=== PATIENT | female | born 1940 | race Caucasian/White ===

== ENCOUNTER 2018-06-03 12:40 | Emergency (ER) | payer OTHER, MEDICARE ==
[2018-06-03] MEDS ORDERED: IBUPROFEN 400 MG TAB ONE (13:45)
--- NOTE | 2018-06-03 14:32 | RAD REPORT ---
EXAM DESCRIPTION: RAD - Lumbar Spine 3 Views - 06/03/2018 2:26 pm CLINICAL HISTORY: PAIN Radiculopathy COMPARISON: No comparisons FINDINGS: Vertebral body heights appear maintained. No compression fracture noted. Disc thinning is present at the lower lumbar levels with small posterior osteophytes. No spondylolysis or spondylolist hesis. Facet arthrosis is present at L4-5 and L5-S1. Aortic atherosclerosis noted. IMPRESSION: Mild lower lumbar spondylosis.
--- NOTE | 2018-06-03 14:38 | RAD REPORT ---
EXAM DESCRIPTION: RAD - Chest Pa And Lat (2 Views) - 06/03/2018 2:26 pm CLINICAL HISTORY: PAIN Chest pain. COMPARISON: Chest Pa And Lat (2 Views) dated 06/23/2016 FINDINGS: The lungs are hyperexpanded but clear. The heart is normal in size. No displaced fractures . IMPRESSION: Mild COPD.
[2018-06-03 14:55] LABS: Urine Blood NEGATIVE (NEG); Urine Glucose NEGATIVE (NEG); Urine Protein NEGATIVE (NEG); Urine Specific Gravity 1.015 (1.005-1.030)
--- NOTE | 2018-06-03 14:57 | ER ---
Nurse's Notes [facility] Name: Joyce Gómez Age: 77 yrs Sex: Female : 1940 Arrival Date: 06/03/2018 Time: 12:41 Bed 7 Private MD: Jethro Mcdonald Diagnosis: Fall due to bumping against object;Low back pain;Contusion of back wall of thorax;Spondylolysis, lumbar region;Chronic obstructive pulmonary disease, unspecified Presentation: 06/03 12:52 Presenting complaint: Patient states: fell from standing position, hitting left side of sg back and upper shoulder on a metal piece kept outside of her door. pt denies LOC or hitting head, reports pain with ambulation. Care prior to arrival: None. Mechanism of Injury: No Mechanism of Injury. Trauma event details: Injury occurred in the [facility]. 12:52 Acuity: HIRO 4 sg 12:52 Method Of Arrival: Wheelchair sg 13:11 Transition of care: patient was not received from another setting of care. Onset of ss symptoms was June 03, 2018. Risk Assessment: Do you want to hurt yourself or someone else? Patient reports no desire to harm self or others. Initial Sepsis Screen: Does the patient meet any 2 criteria? No. Patient's initial sepsis screen is negative. Does the patient have a suspected source of infection? No. Patient's initial sepsis screen is negative. Trauma Activation: Not Applicable Physician: ED Physician; Name: ; Notified At: ; Arrived At: Physician: General Surgeon; Name: ; Notified At: ; Arrived At: Physician: Radiology; Name: ; Notified At: ; Arrived At: Physician: Respiratory; Name: ; Notified At: ; Arrived At: Physician: Lab; Name: ; Notified At: ; Arrived At: Historical: - Allergies: 12:56 No Known Allergies; sg - Home Meds: 12:56 aspirin 81 mg Oral chew 1 tab once daily [Active]; biotin oral oral [Active]; Folic sg Acid Oral [Active]; turmeric root extract oral oral [Active]; Prilosec Oral [Active]; hydrochlorothiazide 12.5 mg Oral cap 1 cap once daily [Active]; irbesartan oral oral [Active]; amlodipine oral [Active]; ropinirole oral oral [Active]; - PMHx: 12:56 Hypertension; Restless Leg Syndrome; sg - PSHx: 12:56 Hysterectomy; Knee surgery; sg - Immunization history: Last tetanus immunization:. - Social history:: Smoking status: Patient/guardian denies using tobacco. - Ebola Screening: : Patient denies exposure to infectious person Patient denies travel to an Ebola-affected area in the 21 days before illness onset. Screenin:13 Abuse screen: Denies threats or abuse. Denies injuries from another. Nutritional ss screening: No deficits noted. Tuberculosis screening: No symptoms or risk factors identified. Never had TB. Fall Risk Fall in past 12 months (25 points). No secondary diagnosis (0 pts). No IV (0 pts). Ambulatory Aid- None/Bed Rest/Nurse Assist (0 pts). Gait- Normal/Bed Rest/Wheelchair (0 pts) Mental Status- Oriented to own ability (0 pts). Assessment: 13:13 General: Appears in no apparent distress. comfortable, Behavior is calm, cooperative, ss Denies fever, feeling ill, fatigue, chills. Pain: Complains of pain in mid back area and left mid back Pain currently is 8 out of 10 on a pain scale. Quality of pain is described as aching, tender, Pain began After injury occurred at approx 1000 this morning Is continuous. Neuro: Level of Consciousness is awake, alert, obeys commands, Oriented to person, place, time, situation, Speech is normal. Cardiovascular: Capillary refill < 3 seconds is brisk. Respiratory: Airway is patent Trachea midline Respiratory effort is even, unlabored, Respiratory pattern is regular, symmetrical, Breath sounds are clear bilaterally. Denies cough, shortness of breath pain with respiration, pain with cough, pain with movement. GI: Abdomen is non-distended, Bowel sounds present X 4 quads. Patient currently denies abdominal pain, diarrhea, nausea, vomiting. : No signs and/or symptoms were reported regarding the genitourinary system. EENT: Nares are clear Oral mucosa is moist. Throat is clear. Derm: Skin is pink, warm \T\ dry. Derm: redness noted to area of pain (L flank area/ mid back). Musculoskeletal: Circulation, motion, and sensation intact. Range of motion: intact in all extremities, Swelling absent. 14:30 Reassessment: Pt ambulated with ease to restroom, gait steady. Daughter walking with ss patient. Offered wheelchair, patient refused. Pt reports that L mid/ low back pain increases with increased activity. 15:02 Reassessment: Patient appears in no apparent distress at this time. Patient and/or ss family updated on plan of care and expected duration. Pain level reassessed. Patient is alert, oriented x 3, equal unlabored respirations, skin warm/dry/pink. Patient states feeling better. Vital Signs: 12:56 BP 144 / 64; Pulse 55; Resp 17; Temp 98.2; Pulse Ox 98% on R/A; Weight 75.75 kg (R); sg Pain 8/10; 15:00 BP 139 / 66; Pulse 50; Resp 16; Pulse Ox 97% on R/A; Pain 2/10; ss Trauma Score (Adult): 12:56 Eye Response: spontaneous(1); Verbal Response: oriented(1); Motor Response: obeys sg commands(2); Systolic BP: > 89 mm Hg(4); Respiratory Rate: 10 to 29 per min(4); Marek Score: 15; Trauma Score: 12 ED Course: 12:41 Patient arrived in ED. sb2 12:41 Jethro Mcdonald MD is Private Physician. sb2 12:53 Triage completed. sg 12:59 Jose Antonio Saunders MD is Attending Physician. tomy 13:03 Sonya Frazier, LEON is Primary Nurse. ss 13:11 Arm band placed on right wrist. ss 13:13 Patient has correct armband on for positive identification. Bed in low position. Call ss light in reach. 14:26 Chest Pa And Lat (2 Views) XRAY In Process Unspecified. EDMS 14:26 Lumbar Spine (3 Views) XRAY In Process Unspecified. EDMS 14:56 Jethro Mcdonald MD is Referral Physician. tomy 15:02 No provider procedures requiring assistance completed. Patient did not have IV access ss during this emergency room visit. Administered Medications: 13:43 Drug: Motrin 400 mg Route: PO; sv 15:02 Follow up: Response: No adverse reaction; Pain is decreased ss Intake: 12:56 PO: 0ml; Total: 0ml. sg Outcome: 14:57 Discharge ordered by MD. tomy 15:38 Discharged to home ambulatory, with family. ss 15:38 Condition: good 15:38 Discharge instructions given to patient, family, Instructed on discharge instructions, follow up and referral plans. medication usage, Demonstrated understanding of instructions, follow-up care, medications, Prescriptions given X 1. 15:40 Patient left the ED. ss Signatures: Dispatcher [employer] EDArabella Novak, RN Guillermo German RN RN sg Anderson, Corey, MD MD cha Smirch, Shelby, RN RN Kimberley Galindo2
--- NOTE | 2018-06-03 14:57 | EDPHYS ---
Physician Documentation [facility] Name: Joyce Gómez Age: 77 yrs Sex: Female : 1940 Arrival Date: 06/03/2018 Time: 12:41 Bed 7 Private MD: Jethro Mcdonald ED Physician Jose Antonio Saunders HPI: 06/03 13:34 This 77 yrs old Female presents to ER via Wheelchair with complaints of Fall tomy Injury - BACK. 13:34 Details of fall: The patient fell from an upright position, while standing, while tomy walking. Onset: The symptoms/episode began/occurred just prior to arrival, this morning. Associated injuries: The patient sustained upper back injury, decreased range of motion, pain, pain with movement. Severity of symptoms: At their worst the symptoms were mild, in the emergency department the symptoms are unchanged. The patient has not experienced similar symptoms in the past. Historical: - Allergies: 12:56 No Known Allergies; sg - Home Meds: 12:56 aspirin 81 mg Oral chew 1 tab once daily [Active]; biotin oral oral [Active]; Folic sg Acid Oral [Active]; turmeric root extract oral oral [Active]; Prilosec Oral [Active]; hydrochlorothiazide 12.5 mg Oral cap 1 cap once daily [Active]; irbesartan oral oral [Active]; amlodipine oral [Active]; ropinirole oral oral [Active]; - PMHx: 12:56 Hypertension; Restless Leg Syndrome; sg - PSHx: 12:56 Hysterectomy; Knee surgery; sg - Immunization history: Last tetanus immunization:. - Social history:: Smoking status: Patient/guardian denies using tobacco. - Ebola Screening: : Patient denies exposure to infectious person Patient denies travel to an Ebola-affected area in the 21 days before illness onset. ROS: 13:35 Constitutional: Negative for fever, chills, and weight loss, Eyes: Negative for injury, tomy pain, redness, and discharge, ENT: Negative for injury, pain, and discharge, Neck: Negative for injury, pain, and swelling, Cardiovascular: Negative for chest pain, palpitations, and edema, Respiratory: Negative for shortness of breath, cough, wheezing, and pleuritic chest pain, Abdomen/GI: Negative for abdominal pain, nausea, vomiting, diarrhea, and constipation, : Negative for injury, bleeding, discharge, and swelling, MS/Extremity: Negative for injury and deformity, Skin: Negative for injury, rash, and discoloration, Neuro: Negative for headache, weakness, numbness, tingling, and seizure, Psych: Negative for depression, anxiety, suicide ideation, homicidal ideation, and hallucinations, Allergy/Immunology: Negative for hives, rash, and allergies, Endocrine: Negative for neck swelling, polydipsia, polyuria, polyphagia, and marked weight changes, Hematologic/Lymphatic: Negative for swollen nodes, abnormal bleeding, and unusual bruising. 13:35 Back: Positive for decreased range of motion, pain at rest, pain with movement, of the left low back and left mid back. Exam: 13:35 Constitutional: This is a well developed, well nourished patient who is awake, alert, tomy and in no acute distress. Head/Face: Normocephalic, atraumatic. Eyes: Pupils equal round and reactive to light, extra-ocular motions intact. Lids and lashes normal. Conjunctiva and sclera are non-icteric and not injected. Cornea within normal limits. Periorbital areas with no swelling, redness, or edema. ENT: Nares patent. No nasal discharge, no septal abnormalities noted. Tympanic membranes are normal and external auditory canals are clear. Oropharynx with no redness, swelling, or masses, exudates, or evidence of obstruction, uvula midline. Mucous membranes moist. Neck: Trachea midline, no thyromegaly or masses palpated, and no cervical lymphadenopathy. Supple, full range of motion without nuchal rigidity, or vertebral point tenderness. No Meningismus. Chest/axilla: Normal chest wall appearance and motion. Nontender with no deformity. No lesions are appreciated. Cardiovascular: Regular rate and rhythm with a normal S1 and S2. No gallops, murmurs, or rubs. Normal PMI, no JVD. No pulse deficits. Respiratory: Lungs have equal breath sounds bilaterally, clear to auscultation and percussion. No rales, rhonchi or wheezes noted. No increased work of breathing, no retractions or nasal flaring. Abdomen/GI: Soft, non-tender, with normal bowel sounds. No distension or tympany. No guarding or rebound. No evidence of tenderness throughout. Skin: Warm, dry with normal turgor. Normal color with no rashes, no lesions, and no evidence of cellulitis. MS/ Extremity: Pulses equal, no cyanosis. Neurovascular intact. Full, normal range of motion. Neuro: Awake and alert, GCS 15, oriented to person, place, time, and situation. Cranial nerves II-XII grossly intact. Motor strength 5/5 in all extremities. Sensory grossly intact. Cerebellar exam normal. Normal gait. Psych: Awake, alert, with orientation to person, place and time. Behavior, mood, and affect are within normal limits. 13:35 Back: pain, that is mild, that is moderate, ROM is painful, with all movement, normal spinal alignment noted, CVA tenderness, that is mild, is noted on the left, vertebral tenderness, is not appreciated. Vital Signs: 12:56 BP 144 / 64; Pulse 55; Resp 17; Temp 98.2; Pulse Ox 98% on R/A; Weight 75.75 kg (R); sg Pain 8/10; 15:00 BP 139 / 66; Pulse 50; Resp 16; Pulse Ox 97% on R/A; Pain 2/10; ss Trauma Score (Adult): 12:56 Eye Response: spontaneous(1); Verbal Response: oriented(1); Motor Response: obeys sg commands(2); Systolic BP: > 89 mm Hg(4); Respiratory Rate: 10 to 29 per min(4); Dexter Score: 15; Trauma Score: 12 MDM: 12:59 Patient medically screened. [facility] 13:36 Data reviewed: vital signs, nurses notes, lab test result(s), urinalysis. [facility] 06/03 14:44 Order name: Urine Dipstick--Ancillary (enter results) 06/03 13:27 Order name: Chest Pa And Lat (2 Views) XRAY; Complete Time: 14:56 [facility] 06/03 13:27 Order name: Lumbar Spine (3 Views) XRAY; Complete Time: 14:56 [facility] 06/03 13:27 Order name: Urine Dipstick-Ancillary (obtain specimen); Complete Time: 14:51 [facility] 06/03 14:58 Order name: INCENTIVE SPIROMETRY [facility] Administered Medications: 13:43 Drug: Motrin 400 mg Route: PO; sv 15:02 Follow up: Response: No adverse reaction; Pain is decreased Disposition: 06/03/18 14:57 Discharged to Home. Impression: Fall due to bumping against object, Low back pain, Contusion of back wall of thorax, Spondylolysis, lumbar region, Chronic obstructive pulmonary disease, unspecified. - Condition is Stable. - Discharge Instructions: Back Pain, Adult, Chronic Obstructive Pulmonary Disease, Musculoskeletal Pain, Back Injury Prevention, [id number], Back Pain, Adult, [id number]. - Prescriptions for Tylenol- Codeine #3 300-30 mg Oral Tablet - take 2 tablets by ORAL route every 6 hours As needed; 24 tablet. - Medication Reconciliation Form, Thank You Letter, Antibiotic Education, Prescription Opioid Use form. - Follow up: Jethro Mcdonald MD; When: 2 - 3 days; Reason: Recheck today's complaints, Continuance of care, Re-evaluation by your physician. - Problem is new. - Symptoms have improved. Signatures: Dispatcher [employer] EDArabella Novak RN RN sv Gay, Steven, RN RN sg Anderson, Corey, MD MD cha Smirch, Shelby, RN RN ss Corrections: (The following items were deleted from the chart) 14:58 14:57 06/03/2018 14:57 Discharged to Home. Impression: Fall due to bumping against tomy object; Low back pain; Contusion of back wall of thorax; Spondylolysis, lumbar region. Condition is Stable. Forms are Medication Reconciliation Form, Thank You Letter, Antibiotic Education, Prescription Opioid Use. Follow up: Jethro Mcdonald; When: 2 - 3 days; Reason: Recheck today's complaints, Continuance of care, Re-evaluation by your physician. Problem is new. Symptoms have improved. [facility] 15:40 14:58 06/03/2018 14:57 Discharged to Home. Impression: Fall due to bumping against ss object; Low back pain; Contusion of back wall of thorax; Spondylolysis, lumbar region; Chronic obstructive pulmonary disease, unspecified. Condition is Stable. Forms are Medication Reconciliation Form, Thank You Letter, Antibiotic Education, Prescription Opioid Use. Follow up: Jethro Mcdonald; When: 2 - 3 days; Reason: Recheck today's complaints, Continuance of care, Re-evaluation by your physician. Problem is new. Symptoms have improved. [facility]
== END 2018-06-03 15:40 | disposition home or self-care (01) ==
LOC: ER 12:40
DX: S20.229A Contusion of unspecified back wall of thorax, initial encounter (principal); W18.00XA Striking against unspecified object with subsequent fall, initial encounter; Y93.9 Activity, unspecified; Y92.9 Unspecified place or not applicable; M47.896 Other spondylosis, lumbar region; J44.9 Chronic obstructive pulmonary disease, unspecified; I10 Essential (primary) hypertension
CPT/HCPCS: 71046; 72100; 81003; 99283

== ENCOUNTER 2019-02-21 05:20 | Emergency (ER) | payer OTHER, MEDICARE ==
[2019-02-21] MEDS ORDERED: TRAMADOL HCL 50 MG TAB ONE (05:57)
--- NOTE | 2019-02-21 06:36 | ER ---
Nurse's Notes [facility] Name: Joyce Gómez Age: 78 yrs Sex: Female : 1940 Arrival Date: 02/21/2019 Time: 05:28 Bed 14 Private MD: Diagnosis: Pain in right hip Presentation: 02/21 05:28 Presenting complaint: EMS states: Called for patient unable to bear weight, pain to lp1 right hip; Hx of sciatica; Denies any trauma, falls; States falling asleep in recliner last night. Transition of care: patient was not received from another setting of care. Onset of symptoms was February 21, 2019. Risk Assessment: Do you want to hurt yourself or someone else? Patient reports no desire to harm self or others. Initial Sepsis Screen: Does the patient meet any 2 criteria? No. Patient's initial sepsis screen is negative. Does the patient have a suspected source of infection? No. Patient's initial sepsis screen is negative. Care prior to arrival: None. 05:28 Method Of Arrival: [facility] lp1 05:28 Acuity: HIRO 4 lp1 Historical: - Allergies: 05:32 No Known Allergies; lp1 - Home Meds: 05:32 irbesartan 300 mg oral tab once daily [Active]; ropinirole 0.25 mg oral tab nightly lp1 [Active]; Prilosec Oral [Active]; hydrochlorothiazide 12.5 mg Oral cap 1 cap once daily [Active]; amlodipine 5 mg oral tab once daily [Active]; - PMHx: 05:32 Hypertension; restless leg syndrome; sciatica; lp1 - PSHx: 05:32 Hysterectomy; Knee surgery; lp1 - Immunization history:: Adult Immunizations up to date. - Social history:: Smoking status: Patient/guardian denies using tobacco. - Ebola Screening: : No symptoms or risks identified at this time. Screenin:34 Abuse screen: Denies threats or abuse. Denies injuries from another. Nutritional lp1 screening: No deficits noted. Tuberculosis screening: No symptoms or risk factors identified. Fall Risk None identified. Assessment: 05:32 General: Appears in no apparent distress. Behavior is calm, cooperative, appropriate lp1 for age. Pain: Complains of pain in right hip Quality of pain is described as aching. Neuro: Level of Consciousness is awake, alert, obeys commands, Oriented to person, place, time, situation, Intact. Cardiovascular: Patient's skin is warm and dry. Respiratory: Respiratory effort is even, unlabored. GI: No signs and/or symptoms were reported involving the gastrointestinal system. : No signs and/or symptoms were reported regarding the genitourinary system. EENT: No signs and/or symptoms were reported regarding the EENT system. Derm: Skin is pink, warm \T\ dry. Musculoskeletal: Range of motion: limited in right hip. 06:40 Reassessment: Assisted patient to for discharge, unable to bear weight to right leg; lp1 Provider notified. 07:04 Reassessment: Assisted patient to bedside commode and [facility]; lp1 family at bedside. 08:10 Reassessment: Patient appears in no apparent distress at this time. Patient and/or em family updated on plan of care and expected duration. Pain level reassessed. Patient is alert, oriented x 3, equal unlabored respirations, skin warm/dry/pink. pending CT results. 09:30 Reassessment: assisted pt to bedside commode, reports pain in right hip, provider em notified, new medication orders received. Vital Signs: 05:30 BP 142 / 65; Pulse 60; Resp 18; Temp 97; Pulse Ox 95% on R/A; Weight 79.38 kg; Height 5 lp1 ft. 10 in. (177.80 cm); Pain 0/10; 07:06 BP 153 / 66; Pulse 58; Resp 16; Pulse Ox 97% on R/A; em 08:30 BP 135 / 64; Pulse 69; Resp 18; Pulse Ox 95% on R/A; em 05:30 Body Mass Index 25.11 (79.38 kg, 177.80 cm) lp1 ED Course: 05:28 Patient arrived in ED. lp1 05:30 Triage completed. lp1 05:30 Arm band placed on left wrist. lp1 05:32 Benjamin Arriola MD is Attending Physician. tw4 05:34 Patient has correct armband on for positive identification. lp1 05:34 No provider procedures requiring assistance completed. Patient did not have IV access lp1 during this emergency room visit. 05:44 Lynda Maravilla, RN is Primary Nurse. lp1 06:28 X-ray completed. Portable x-ray completed in exam room. Patient tolerated procedure kw well. 06:31 Pelvis XRAY In Process Unspecified. EDMS 07:06 Jose Antonio Finn PA is PHCP. cp 07:17 CT Pelvis wo Cont In Process Unspecified. EDMS 09:09 Raul Hoffmann MD is Referral Physician. cp Administered Medications: 05:44 Drug: traMADol 50 mg Route: PO; lp1 06:34 Follow up: Response: Pain is decreased lp1 09:08 Drug: TORadol 30 mg Route: IM; Site: right deltoid; em 09:25 Follow up: Response: No adverse reaction; Pain is unchanged, physician notified em 09:40 Drug: fentaNYL (PF) 25 mcg Route: IM; Site: left deltoid; em 09:56 Follow up: Response: No adverse reaction; Pain is decreased em Outcome: 06:35 Discharge ordered by . tw4 09:09 Discharge ordered by MD. cp 09:53 Discharged to home via wheelchair, with family. em 09:53 Condition: good 09:53 Discharge instructions given to patient, family, Instructed on discharge instructions, follow up and referral plans. medication usage, Demonstrated understanding of instructions, follow-up care, medications, Prescriptions given X 3. 09:56 Patient left the ED. em Signatures: Dispatcher [employer] EDMN Carlos Hoover, COWLMAN COWLMAN em Sarah Charles Laura, LEON RN lp1 Jose Antonio Finn PA PA cp Wadley, Terrence, MD MD tw4
--- NOTE | 2019-02-21 08:14 | RAD REPORT ---
EXAM DESCRIPTION: CT - Pelvis Wo Cont - 02/21/2019 7:15 am CLINICAL HISTORY: PAIN Right hip pain, difficulty with weight-bearing COMPARISON: Pelvis dated 02/21/2019 TECHNIQUE: All CT scans are performed using dose optimization technique as appropriate and may inclu de automated exposure control or mA/KV adjustment according to patient size. FINDINGS: No acute fracture or dislocation is seen. No aggressive bony lesion identified. Both sacra l ala are intact. Sigmoid diverticulosis coli is present without diverticulitis. No pelvic mass, free fluid or hematoma . IMPRESSION: No acute process identified.
--- NOTE | 2019-02-21 08:33 | RAD REPORT ---
EXAM DESCRIPTION: RAD - Pelvis - 02/21/2019 6:30 am CLINICAL HISTORY: TRAUMA COMPARISON: No comparisons FINDINGS: Bilateral hip osteoarthritic changes are present. No acute fracture or dislocation suspect ed.
--- NOTE | 2019-02-21 09:10 | EDPHYS ---
Physician Documentation [facility] Name: Joyce Gómez Age: 78 yrs Sex: Female : 1940 Arrival Date: 02/21/2019 Time: 05:28 Bed 14 Private MD: ED Physician Benjamin Arriola HPI: 02/21 06:52 This 78 yrs old Female presents to ER via EMS with complaints of Hip Pain. tw4 06:52 The patient or guardian reports deformity, pain. that occurred at home. The complaints tw4 affect the right hip. Onset: The symptoms/episode began/occurred today. Modifying factors: The symptoms are alleviated by nothing, the symptoms are aggravated by nothing. The patient has not experienced similar symptoms in the past. Historical: - Allergies: 05:32 No Known Allergies; lp1 - Home Meds: 05:32 irbesartan 300 mg oral tab once daily [Active]; ropinirole 0.25 mg oral tab nightly lp1 [Active]; Prilosec Oral [Active]; hydrochlorothiazide 12.5 mg Oral cap 1 cap once daily [Active]; amlodipine 5 mg oral tab once daily [Active]; - PMHx: 05:32 Hypertension; restless leg syndrome; sciatica; lp1 - PSHx: 05:32 Hysterectomy; Knee surgery; lp1 - Immunization history:: Adult Immunizations up to date. - Social history:: Smoking status: Patient/guardian denies using tobacco. - Ebola Screening: : No symptoms or risks identified at this time. ROS: 06:52 Constitutional: Negative for fever, chills, and weight loss, Eyes: Negative for injury, tw4 pain, redness, and discharge, Cardiovascular: Negative for chest pain, palpitations, and edema, Respiratory: Negative for shortness of breath, cough, wheezing, and pleuritic chest pain, Abdomen/GI: Negative for abdominal pain, nausea, vomiting, diarrhea, and constipation, Skin: Negative for injury, rash, and discoloration, Neuro: Negative for headache, weakness, numbness, tingling, and seizure. 06:52 MS/extremity: Positive for injury or acute deformity, decreased range of motion, pain, tenderness, Negative for abrasion, bite, contusion. Exam: 06:52 Constitutional: This is a well developed, well nourished patient who is awake, alert, tw4 and in no acute distress. Head/Face: Normocephalic, atraumatic. Chest/axilla: Normal chest wall appearance and motion. Nontender with no deformity. No lesions are appreciated. Cardiovascular: Regular rate and rhythm with a normal S1 and S2. No gallops, murmurs, or rubs. Normal PMI, no JVD. No pulse deficits. Respiratory: Lungs have equal breath sounds bilaterally, clear to auscultation and percussion. No rales, rhonchi or wheezes noted. No increased work of breathing, no retractions or nasal flaring. Abdomen/GI: Soft, non-tender, with normal bowel sounds. No distension or tympany. No guarding or rebound. No evidence of tenderness throughout. Skin: Warm, dry with normal turgor. Normal color with no rashes, no lesions, and no evidence of cellulitis. 06:52 Musculoskeletal/extremity: Extremities: noted in the right hip and right gluteal fold: decreased ROM. Vital Signs: 05:30 BP 142 / 65; Pulse 60; Resp 18; Temp 97; Pulse Ox 95% on R/A; Weight 79.38 kg; Height 5 lp1 ft. 10 in. (177.80 cm); Pain 0/10; 07:06 BP 153 / 66; Pulse 58; Resp 16; Pulse Ox 97% on R/A; em 08:30 BP 135 / 64; Pulse 69; Resp 18; Pulse Ox 95% on R/A; em 05:30 Body Mass Index 25.11 (79.38 kg, 177.80 cm) lp1 MDM: 05:32 Patient medically screened. tw4 09:08 Data reviewed: vital signs, nurses notes, radiologic studies, CT scan, plain films. cp 09:08 Test interpretation: by ED physician or midlevel provider: plain radiologic studies. cp Counseling: I had a detailed discussion with the patient and/or guardian regarding: the historical points, exam findings, and any diagnostic results supporting the discharge/admit diagnosis, radiology results, the need for outpatient follow up, a orthopedic surgeon, to return to the emergency department if symptoms worsen or persist or if there are any questions or concerns that arise at home. Response to treatment: the patient's symptoms have mildly improved after treatment. ED course: VSS. Radiology studies negative for fracture. Once pain improved and patient able to ambulate, will discharge to home for continued monitoring. 02/21 05:33 Order name: Pelvis XRAY; Complete Time: 08:39 tw4 02/21 06:52 Order name: CT Pelvis wo Cont; Complete Time: 08:39 tw4 02/21 08:39 Interpretation: Report reviewed. cp Administered Medications: 05:44 Drug: traMADol 50 mg Route: PO; lp1 06:34 Follow up: Response: Pain is decreased lp1 09:08 Drug: TORadol 30 mg Route: IM; Site: right deltoid; em 09:25 Follow up: Response: No adverse reaction; Pain is unchanged, physician notified em 09:40 Drug: fentaNYL (PF) 25 mcg Route: IM; Site: left deltoid; em 09:56 Follow up: Response: No adverse reaction; Pain is decreased em Disposition: 02/21/19 09:09 Discharged to Home. Impression: Pain in right hip. - Condition is Stable. - Discharge Instructions: Hip Pain. - Prescriptions for Mobic 7.5 mg Oral Tablet - take 1 tablet by ORAL route once daily take with food; 20 tablet. Tramadol 50 mg Oral Tablet - take 1 tablet by ORAL route every 8 hours As needed as needed; 20 tablet. - Medication Reconciliation Form, Thank You Letter, Antibiotic Education, Prescription Opioid Use form. - Follow up: Raul Hoffmann MD; When: 2 - 3 days; Reason: Recheck today's complaints. - Problem is new. - Symptoms have improved. Addendum: 02/25/2019 16:34 Co-signature as Attending Physician, Benjamin Arriola MD I agree with the assessment and t w4 plan of care. Signatures: Dispatcher [employer] EDNM Carlos Hoover, FACULTY ADMINISTRATOR FACULTY ADMINISTRATOR Lynda Wood RN RN lp1 Jose Antonio Finn PA PA Benjamin Marks MD MD tw4 Corrections: (The following items were deleted from the chart) 02/21 06:56 06:35 02/21/2019 06:35 Discharged to Home. Impression: Strain of muscle, fascia and tw4 tendon of right hip. Condition is Stable. Forms are Medication Reconciliation Form, Thank You Letter, Antibiotic Education, Prescription Opioid Use. Follow up: Private Physician; When: Upon discharge from the Emergency Department; Reason: If symptoms return, Recheck today's complaints, Continuance of care. Problem is new. Symptoms have improved. tw4 09:56 09:09 02/21/2019 09:09 Discharged to Home. Impression: Pain in right hip. Condition is em Stable. Prescriptions for Tramadol 50 mg Oral Tablet - take 1 tablet by ORAL route every 8 hours as needed; 12 tablet. and Forms are Medication Reconciliation Form, Thank You Letter, Antibiotic Education, Prescription Opioid Use. Follow up: Raul Hoffmann; When: 2 - 3 days; Reason: Recheck today's complaints. Problem is new. Symptoms have improved. cp
[2019-02-21] MEDS ORDERED: KETOROLAC 30 MG/ML INJ ONE (09:19)
[2019-02-21] MEDS ORDERED: FENTANYL CITR 100 MCG/2 ML ONE (09:46)
== END 2019-02-21 09:56 | disposition home or self-care (01) ==
LOC: ER 05:20
DX: M25.551 Pain in right hip (principal); I10 Essential (primary) hypertension
CPT/HCPCS: 72170; 72192; 96372; 99284; J3010

== ENCOUNTER 2019-02-23 15:40 | Inpatient (IN) | payer OTHER, MEDICARE ==
--- OUTSIDE RECORDS SUMMARY | 2019-02-23 15:43 | XMS REPORT ---
:1940 Author Organization [facility] Address [address] [place] [address] Dr. Escobedo [address] [place] [id number] Care Team Providers Name Role Phone Unavailable Unavailable Unavailable Problems This patient has no known problems. Allergies, Adverse Reactions, Alerts This patient has no known allergies or adverse reactions. Medications This patient has no known medications.
--- NOTE | 2019-02-23 17:13 | RAD REPORT ---
EXAM DESCRIPTION: RAD - Lumbar Spine 3 Views - 02/23/2019 4:47 pm CLINICAL HISTORY: Back pain COMPARISON: May 2018 FINDINGS: A three-view lumbar spine examination was performed. Lumbar bodies are normal in height an d alignment. No fracture or acute bony process seen. Minimal disc space narrowing at L3-4. There is d isc space narrowing at T12-L1. Endplate spurring is seen at the thoracolumbar junction. Degenerative changes are not substantially different from comparison. Facet joint degenerative changes are present . No pars defects identified. Arterial tree calcifications are present. IMPRESSION: Disc and bony degenerative changes are present as detailed. No fracture or acute finding . Lumbar spine findings are not significantly different from 2018 comparison.
--- NOTE | 2019-02-23 18:47 | EDPHYS ---
Physician Documentation [facility] Name: Joyce Gómez Age: 78 yrs Sex: Female : 1940 Arrival Date: 02/23/2019 Time: 15:45 Bed 16 Private MD: Jethro Mcdonald ED Physician Familia Guevara HPI: 02/23 19:09 This 78 yrs old Female presents to ER via Wheelchair with complaints of Hip snw Pain. 19:09 The patient or guardian reports pain, swelling. that occurred at home, sustained from snw unknown reason, There is no obvious deformity, The patient is not able to ambulate. Patient is not able to bear weight. There is no radiation of the patient's discomfort. The complaints affect the right hip. Onset: The symptoms/episode began/occurred 1 week(s) ago, intractable, failed outpt therapy. Associated signs and symptoms: Loss of consciousness: the patient experienced no loss of consciousness. Severity of symptoms: At their worst the symptoms were moderate, severe. The patient has not experienced similar symptoms in the past. The patient has been recently seen at the [facility], this week, for similar complaints X-rays were performed, CT scan was performed, was given a prescription for pain medications. unable to perform ADLs. Historical: - Allergies: 15:53 No Known Allergies; hb - Home Meds: 15:53 amlodipine 5 mg tab once daily [Active]; hydrochlorothiazide 12.5 mg Oral cap 1 cap hb once daily [Active]; irbesartan 300 mg Oral tab once daily [Active]; Prilosec Oral [Active]; ropinirole 0.25 mg Oral tab nightly [Active]; - PMHx: 15:53 Hypertension; restless leg syndrome; sciatica; hb - PSHx: 15:53 Hysterectomy; Knee surgery; hb - Immunization history:: Adult Immunizations up to date. - Social history:: Smoking status: Patient/guardian denies using tobacco. - Ebola Screening: : No symptoms or risks identified at this time. ROS: 19:02 Constitutional: Negative for fever, chills, and weight loss, Eyes: Negative for injury, snw pain, redness, and discharge, ENT: Negative for injury, pain, and discharge, Neck: Negative for injury, pain, and swelling, Cardiovascular: Negative for chest pain, palpitations, and edema, Respiratory: Negative for shortness of breath, cough, wheezing, and pleuritic chest pain, Abdomen/GI: Negative for abdominal pain, nausea, vomiting, diarrhea, and constipation, Back: Negative for injury and pain, : Negative for injury, bleeding, discharge, and swelling, Skin: Negative for injury, rash, and discoloration, Neuro: Negative for headache, weakness, numbness, tingling, and seizure. 19:02 MS/extremity: Positive for pain, tenderness, unable to bear weight to right lower ext. Exam: 19:02 Head/Face: Normocephalic, atraumatic. Eyes: Pupils equal round and reactive to light, snw extra-ocular motions intact. Lids and lashes normal. Conjunctiva and sclera are non-icteric and not injected. Cornea within normal limits. Periorbital areas with no swelling, redness, or edema. ENT: Nares patent. No nasal discharge, no septal abnormalities noted. Tympanic membranes are normal and external auditory canals are clear. Oropharynx with no redness, swelling, or masses, exudates, or evidence of obstruction, uvula midline. Mucous membranes moist. Neck: Trachea midline, no thyromegaly or masses palpated, and no cervical lymphadenopathy. Supple, full range of motion without nuchal rigidity, or vertebral point tenderness. No Meningismus. Chest/axilla: Normal chest wall appearance and motion. Nontender with no deformity. No lesions are appreciated. Cardiovascular: Regular rate and rhythm with a normal S1 and S2. No gallops, murmurs, or rubs. Normal PMI, no JVD. No pulse deficits. Respiratory: Lungs have equal breath sounds bilaterally, clear to auscultation and percussion. No rales, rhonchi or wheezes noted. No increased work of breathing, no retractions or nasal flaring. Abdomen/GI: Soft, non-tender, with normal bowel sounds. No distension or tympany. No guarding or rebound. No evidence of tenderness throughout. Back: No spinal tenderness. No costovertebral tenderness. Full range of motion. Skin: Warm, dry with normal turgor. Normal color with no rashes, no lesions, and no evidence of cellulitis. Neuro: Awake and alert, GCS 15, oriented to person, place, time, and situation. Cranial nerves II-XII grossly intact. Motor strength 5/5 in all extremities. Sensory grossly intact. Cerebellar exam normal. Normal gait. 19:02 Constitutional: The patient appears alert, awake, unable to ambulate 2nd to pain to right hip, failed outpatient therapy, unable to complete ADLs, no contusion, able to move extremities, nvs intact, Dr. Mcdonald would like pt admitted for MRI, orthopedic, and physical therapy evaluation 19:02 Musculoskeletal/extremity: Extremities: grossly normal except: noted in the right lower back: contusion, pain, ROM: painful to right lower extremity, unable to bear weight, Circulation is intact in all extremities. Sensation intact. Severe pain noted. Vital Signs: 15:52 BP 155 / 70; Pulse 60; Resp 16; Temp 97.9; Pulse Ox 100% on R/A; Weight 77.11 kg; hb Height 4 ft. 10 in. (147.32 cm); Pain 10/10; 18:47 BP 126 / 69; Pulse 66; Resp 17; Pulse Ox 96% on R/A; tw2 19:35 BP 154 / 80; Pulse 58; Resp 16; Pulse Ox 97% on R/A; mt 20:56 BP 153 / 73; Pulse 57; Resp 18; Pulse Ox 96% on R/A; tl2 15:52 Body Mass Index 35.53 (77.11 kg, 147.32 cm) hb MDM: 17:48 Patient medically screened. snw 18:38 Data reviewed: vital signs, nurses notes. Data interpreted: Pulse oximetry: on room air snw is 100 %. Interpretation: normal. 18:39 Counseling: I had a detailed discussion with the patient and/or guardian regarding: the snw historical points, exam findings, and any diagnostic results supporting the discharge/admit diagnosis, radiology results, Dr. Mcdonald advised pt to return to ED, he would like her admitted inpatient with a consult to Orthopedics despite unchanged findings on x-ray. . 02/23 15:59 Order name: Lumbar Spine (3 Views) XRAY; Complete Time: 17:48 snw 02/23 19:21 Order name: MRI Lumbar Spine wo Con cm6 Administered Medications: 19:04 Drug: fentaNYL (PF) 25 mcg Route: IM; Site: right deltoid; tw2 20:00 Follow up: Response: No adverse reaction; Pain is decreased tl2 19:23 Drug: Decadron 8 mg Route: PO; tl2 20:57 Follow up: Response: No adverse reaction tl2 Disposition: 02/23/19 18:46 Hospitalization ordered by Jethro Mcdonald for Inpatient Admission. Preliminary diagnosis is Pain in hip - Intractable, failed outpatient therapy. - Bed requested for Telemetry/MedSurg (Inpatient). - Status is Inpatient Admission. tl2 - Condition is Stable. - Problem is an ongoing problem. - Symptoms are unchanged. UTI on Admission? No Addendum: 02/25/2019 19:03 Co-signature as Attending Physician, Familia Guevara MD. r n Signatures: Dispatcher [employer] EDMS Rebeca Vee, RN RN dw Bibi Herring, AUTOMATIC TRANSMISSION MECHANIC-C AUTOMATIC TRANSMISSION MECHANIC-Csnw Familia Guevara MD MD rn Baxter, Heather RN RN Hazel Segal RN RN tw2 Chichi Rodríguez RN RN tl2 Corrections: (The following items were deleted from the chart) 02/23 19:27 18:46 Hospitalization Ordered by Jethro Mcdonald MD for Inpatient Admission. Preliminary dw diagnosis is Pain in hip - Intractable, failed outpatient therapy. Bed requested for Telemetry/MedSurg (Inpatient). Status is Inpatient Admission. Condition is Stable. Problem is an ongoing problem. Symptoms are unchanged. UTI on Admission? No. snw 20:59 19:27 02/23/2019 18:46 Hospitalization Ordered by Jethro Mcdonald MD for Inpatient tl2 Admission. Preliminary diagnosis is Pain in hip - Intractable, failed outpatient therapy. Bed requested for Telemetry/MedSurg (Inpatient). Status is Inpatient Admission. Condition is Stable. Problem is an ongoing problem. Symptoms are unchanged. UTI on Admission? No. dw
--- NOTE | 2019-02-23 18:47 | ER ---
Nurse's Notes [facility] Name: Joyce Gómez Age: 78 yrs Sex: Female : 1940 Arrival Date: 02/23/2019 Time: 15:45 Bed 16 Private MD: Jethro Mcdonald Diagnosis: Pain in hip-Intractable, failed outpatient therapy Presentation: 02/23 15:51 Presenting complaint: Severe right hip pain x 4 days, pain unrelieved by Tramadol. hb Transition of care: patient was not received from another setting of care. Onset of symptoms was February 19, 2019. Risk Assessment: Do you want to hurt yourself or someone else? Patient reports no desire to harm self or others. Initial Sepsis Screen: Does the patient meet any 2 criteria? No. Patient's initial sepsis screen is negative. Does the patient have a suspected source of infection? No. Patient's initial sepsis screen is negative. Care prior to arrival: None. 15:51 Method Of Arrival: Wheelchair hb 15:51 Acuity: HIRO 3 hb Triage Assessment: 18:48 General: Behavior is calm, cooperative. tw2 Historical: - Allergies: 15:53 No Known Allergies; hb - Home Meds: 15:53 amlodipine 5 mg tab once daily [Active]; hydrochlorothiazide 12.5 mg Oral cap 1 cap hb once daily [Active]; irbesartan 300 mg Oral tab once daily [Active]; Prilosec Oral [Active]; ropinirole 0.25 mg Oral tab nightly [Active]; - PMHx: 15:53 Hypertension; restless leg syndrome; sciatica; hb - PSHx: 15:53 Hysterectomy; Knee surgery; hb - Immunization history:: Adult Immunizations up to date. - Social history:: Smoking status: Patient/guardian denies using tobacco. - Ebola Screening: : No symptoms or risks identified at this time. Screenin:46 Abuse screen: Denies threats or abuse. Nutritional screening: No deficits noted. tw2 Tuberculosis screening: No symptoms or risk factors identified. Fall Risk Secondary diagnosis (15 points) impaired mobility. Assessment: 17:24 General: Appears in no apparent distress. uncomfortable, when bending or position tw2 change. Pain: Complains of pain in right hip/lowback. Neuro: Level of Consciousness is awake, alert, obeys commands, Oriented to person, place, time, situation. Cardiovascular: Heart tones S1 S2 Patient's skin is warm and dry. Respiratory: Airway is patent Respiratory effort is even, unlabored, Respiratory pattern is regular, symmetrical, Breath sounds are clear bilaterally. GI: No signs and/or symptoms were reported involving the gastrointestinal system. Abdomen is flat, Bowel sounds present X 4 quads. : No signs and/or symptoms were reported regarding the genitourinary system. EENT: No signs and/or symptoms were reported regarding the EENT system. Derm: No signs and/or symptoms reported regarding the dermatologic system. Musculoskeletal: Circulation, motion, and sensation intact. Range of motion: intact in all extremities. 18:47 Reassessment: Patient appears in no apparent distress at this time. No changes from tw2 previously documented assessment. Patient and/or family updated on plan of care and expected duration. Pain level reassessed. Patient is alert, oriented x 3, equal unlabored respirations, skin warm/dry/pink. 18:47 Reassessment: Dr. Guevara at bedside at this time. tw2 19:10 General: Appears in no apparent distress. uncomfortable, Behavior is calm, cooperative, tl2 appropriate for age. Pain: Complains of pain in left iliac crest and right lower back. Neuro: Level of Consciousness is awake, alert, obeys commands, Oriented to person, place, time, situation. Respiratory: Airway is patent Respiratory effort is even, unlabored, Respiratory pattern is regular, symmetrical. GI: No signs and/or symptoms were reported involving the gastrointestinal system. : No signs and/or symptoms were reported regarding the genitourinary system. Derm: Skin is pink, warm \T\ dry. Vital Signs: 15:52 BP 155 / 70; Pulse 60; Resp 16; Temp 97.9; Pulse Ox 100% on R/A; Weight 77.11 kg; hb Height 4 ft. 10 in. (147.32 cm); Pain 10/10; 18:47 BP 126 / 69; Pulse 66; Resp 17; Pulse Ox 96% on R/A; tw2 19:35 BP 154 / 80; Pulse 58; Resp 16; Pulse Ox 97% on R/A; mt 20:56 BP 153 / 73; Pulse 57; Resp 18; Pulse Ox 96% on R/A; tl2 15:52 Body Mass Index 35.53 (77.11 kg, 147.32 cm) hb ED Course: 15:45 Patient arrived in ED. mr 15:45 Jethro Mcdonald MD is Private Physician. mr 15:52 Triage completed. hb 15:53 Arm band placed on. hb 16:49 Lumbar Spine (3 Views) XRAY In Process Unspecified. EDMS 17:24 Bed in low position. Call light in reach. Side rails up X2. Adult w/ patient. Pulse ox tw2 on. NIBP on. Warm blanket given. 17:28 Hazel Segal, RN is Primary Nurse. tw2 17:47 Bibi [facility]-C [facility]. snw 17:47 Familia Guevara MD is Attending Physician. snw 18:42 Jethro Mcdonald MD is Hospitalizing Provider. snw 19:04 Report given to LEON Cadet - admission outstanding at this time. tw2 20:09 Inserted saline lock: 22 gauge in right antecubital area, using aseptic technique. tl2 20:56 No provider procedures requiring assistance completed. Patient admitted, IV remains in tl2 place. Administered Medications: 19:04 Drug: fentaNYL (PF) 25 mcg Route: IM; Site: right deltoid; tw2 20:00 Follow up: Response: No adverse reaction; Pain is decreased tl2 19:23 Drug: Decadron 8 mg Route: PO; tl2 20:57 Follow up: Response: No adverse reaction tl2 Outcome: 18:46 Decision to Hospitalize by Provider. snw 20:56 Admitted to Med/surg accompanied by tech, family with patient, via stretcher, room 209, tl2 with chart, Report called to LEON Gonzales 20:56 Condition: good 20:56 Discharge instructions given to patient, family, Instructed on the need for admit. 20:59 Patient left the ED. tl2 Signatures: Dispatcher [employer] EDMS Bibi Herring FNP-C PORTRAIT CONSULTANT-Csn Lucina TompkinsAnny, LEON RN Hazel Segal RN RN tw2 Chichi Rodríguez RN RN tl2 Doris Olivares ct Corrections: (The following items were deleted from the chart) 20:56 19:10 BP 153 / 73; Pulse 57bpm; Resp 18bpm; Pulse Ox 96% RA; tl2 tl2
[2019-02-23] MEDS ORDERED: FENTANYL CITR 100 MCG/2 ML ONE (19:11)
[2019-02-23] MEDS ORDERED: DEXAMETHASONE 4 MG TAB ONE (19:35)
[2019-02-23] MEDS: FENTANYL CITR 100 MCG/2 ML IV SCH (20:51)
[2019-02-24] MEDS: FENTANYL CITR 100 MCG/2 ML IV SCH ×3 (04:02→21:36)
[2019-02-24] MEDS ORDERED: CODEINE 30MG/APAP 300MG TAB PO PRN (06:50)
[2019-02-24] MEDS ORDERED: ACETAMINOPHEN 500 MG TAB PO PRN (06:50)
[2019-02-24] MEDS ORDERED: ONDANSETRON 4 MG/2 ML VIAL IV PRN (06:51)
[2019-02-24 07:20] LABS: Absolute Lymphocytes (CBC) 0.9 K/uL (0.7-4.9); Absolute Monocytes 0.1 K/uL (0.1-1.3); Absolute Neutrophil 5.7 K/uL (1.8-8.0); Basophils % 0.2 % (0-1.3); Hematocrit 41.2 % (36.0-45.0); Lymphocytes % 13.5 % (15.3-44.8); MPV 7.5 fL (7.6-11.3); Monocytes % 1.4 % (3.3-12.3); RBC Red Blood Cell Count 4.61 M/uL (3.86-4.86)
[2019-02-24 07:29] LABS: Protime INR 1.05
[2019-02-24 07:41] LABS: Albumin 3.5 g/dL (3.4-5.0); Bilirubin Total 0.3 mg/dL (0.2-1.0); Magnesium 2.3 mg/dL (1.8-2.4); Potassium 4.1 mmol/L (3.5-5.1); Protein, Total 7.2 g/dL (6.4-8.2)
[2019-02-24] MEDS: PANTOPRAZOLE 40MG TABLET PO SCH (08:00)
[2019-02-24] MEDS: ASPIRIN EC 81 MG TAB PO SCH (09:00)
[2019-02-24] MEDS: hydroCHLOROthiazide 12.5 MG CAP PO SCH (09:00)
[2019-02-24] MEDS: FOLIC ACID 1 MG TABLET PO SCH (09:00)
[2019-02-24] MEDS: IRBESARTAN 150 MG TAB PO SCH (09:00)
[2019-02-24] MEDS: AMLODIPINE 5 MG TAB PO SCH (09:00)
[2019-02-24] MEDS: ENOXAPARIN 40 MG/0.4 ML SQ SCH (10:30)
--- NOTE | 2019-02-24 10:32 | RAD REPORT ---
EXAM DESCRIPTION: RAD - Tib Fib Right - 02/24/2019 9:12 am CLINICAL HISTORY: Right lower leg pain COMPARISON: None. FINDINGS: No fracture is identified. There is no dislocation or periosteal reaction noted. No acute or destructive bone process. There degenerative changes at the knee joint. Hardware is in place from partial joint replacement in the medial compartment. Mild lateral compartment spurring noted. There i s narrowing of the tibiotalar joint space. No foreign body or other soft tissue abnormality. Arterial calcifications are present. IMPRESSION: Negative right tibia & fibula examination for acute findings. Degenerative and postsurgical changes are present in the knee joint and degenerative changes are pres ent at the tibiotalar joint space at the ankle.
--- NOTE | 2019-02-24 12:14 | RAD REPORT ---
EXAM DESCRIPTION: MRI - Lumbar Spine Wo Con - 02/24/2019 11:55 am CLINICAL HISTORY: Intractable back pain COMPARISON: None. TECHNIQUE: Sagittal T1-weighted, T2-weighted and T2-STIR weighted sequences were obtained. Axial T1 -weighted and heavily T2-weighted sequenceswere obtained through the lumbar disc levels. FINDINGS: Lumbar bodies are normal in height and alignment. Scattered fatty marrow degenerative tomy nges are present. Small probable hemangiomas are present in the anterior superior aspect of T12 and L 2 as incidental findings. Active marrow degenerative change present in the inferior L5 body seen as h ypointense T1 and hyperintense T2/IR signal. Minimal similar signal pattern seen in the superior aspe ct S1. No paraspinal mass. Conus is normal with no clumping or thickening of the cauda equina. T12-L1 level: Disc is desiccated without loss in height. Midline disc bulge without spinal stenosis. L1-2 level: Disc is desiccated without loss in height. Minimal disc bulge without canal or foramen st enosis. L2-3 level: No significant findings. L3-4 level: Disc is desiccated without loss in height. Midline annular fissure is present. There is n o central spinal stenosis present. Midline disc bulge is mild. Foraminal disc bulge does not create s tenosis of either foramen. Mild facet degenerative change present. L4-5 level: Disc is desiccated without loss in disc height. Minimal annular fissure seen along the in ferior aspect of the disc in the midline. Foramen and midline disc bulge changes are very minimal wit hout stenosis. L5-S1 level: Disc is desiccated with degenerative gas in the disc space. There is a slight loss in di sc height. Broad-based bulging of disc material is present. Spurring and disc bulge changes result in bilateral foraminal encroachment. There is a large midline disc herniation measuring 12 mm CC by 14 mm TR x 8 mm AP. Herniation extends superiorly along the posterior wall L5. This is not yet a free ex truded fragment. There is mass effect on the thecal sac but no central spinal stenosis. IMPRESSION: Large midline L5-S1 disc herniation extending superiorly from the disc space along the p osterior wall L5. The L5-S1 disc herniation has mass effect on the thecal sac but no central spinal stenosis. There are significant facet degenerative changes at this level. Additional disc bulge and endplate spurring changes at L5-S1 cause moderate bilateral foraminal steno sis. Multiple other lumbar disc levels have disc bulge changes not causing canal or foramen stenoses. Active marrow degenerative change in the L5 and S1 bodies abutting the disc.
--- NOTE | 2019-02-24 12:31 | RAD REPORT ---
EXAM DESCRIPTION: MRI - Hip Right Wo Cont - 02/24/2019 11:56 am CLINICAL HISTORY: Right hip pain COMPARISON: none TECHNIQUE: Axial, sagittal, and coronal magnetic images of the right hip obtained FINDINGS: Low signal on T1 weighted sequences throughout the bones has the appearance of red marrow reconversion. . There is no evidence of avascular necrosis. No fracture or dislocation seen. Mild signal is present within the gluteus muscle near its insertion with the greater trochanter of th e right femur consistent with a strain Small bilateral hip joint effusions IMPRESSION: Mild strain of the gluteus muscle near its insertion with the greater trochanter of the right femur No fracture
[2019-02-24] MEDS: METHYLPREDNISOLONE 40 MG INJ IV SCH ×2 (15:09→18:30)
[2019-02-24] MEDS ORDERED: ROPINIROLE HCL 0.25 MG TAB PO SCH (21:00)
[2019-02-25] MEDS: METHYLPREDNISOLONE 40 MG INJ IV SCH ×3 (00:09→12:28)
--- NOTE | 2019-02-25 04:24 | HP ---
Date of Admission: 02/24/2019 Chief Complaint: Right leg pain, right hip pain and back pain. History Of Present Illness: A 78-year-old female patient, who lives at home by herself, called her daughter on 02/21/2019 and told her daughter that she thinks that she broke her hip after she fell down. She was on the floor and she was not able to get up, so the patient's daughter who lives out of town came to her house and the patient's son-in-law actually help her to get up and they brought her to emergency room. After she was evaluated in the ER, her hip x-ray was negative, CAT scan of the pelvis was negative, so she was discharged to go home with tramadol, meloxicam, and yesterday the patient's daughter called me and told me that the patient's pain is not getting any better. She is having extreme difficulty getting out of bed, standing, walking, etc., and the pain is not coming under control with the pain medication. So, we were concerned about possibility of fracture or any other etiology, and considering she is at high risk of fall and injury, it was recommended for her to come back to emergency room. After she was evaluated in the ER, she was admitted to hospital. I saw her this morning and she is complaining of pain in her right lateral leg, in the upper two-third of right lateral leg below the knee. She is also complaining of pain in right lateral hip and right buttock region and lower back. No rash. No fever. No chills. No tingling numbness. Review of Systems: Musculoskeletal: As mentioned above. All other systems reviewed and negative. Medications: List reviewed. Allergies: NO KNOWN ALLERGIES. Family History: Not pertinent. Social History: Negative for smoking, alcohol use. Past Surgical History: Not pertinent. Past Medical History: Hypertension, hyperlipidemia, osteoarthritis at multiple sites. Physical Examination: Vital Signs: Temperature 97.4, pulse 75, respiratory rate 16, blood pressure 138/73, height 4 feet 10 inches, weight 174 pounds. General: Awake, alert, oriented, not in distress. HEENT: Head atraumatic, normocephalic. Conjunctivae nonerythematous. Sclerae white. Mouth, no thrush or edema noted. Ears/Nose, no mass, lesion, discharge noted. Neck: Supple. No JVD, lymph nodes, bruit, thyromegaly noted. Lungs: Bilateral good equal air entry. Clear to auscultation. No rhonchi. No rales. Heart: Normal heart sounds, no murmur or gallop. Abdomen: Soft, bowel sounds normal. No guarding, rigidity, tenderness, mass, hepatosplenomegaly, distention, or bruit noted. Extremities: No leg edema. No calf tenderness. Skin: No rash, ulcer, cellulitis. Lymphatics: No lymph node enlargement in neck, supraclavicular, infraclavicular region. Neuro: No focal neurological deficit. Chest: Unremarkable. External Genitalia: Deferred. Rectal: Deferred. Musculoskeletal: SLR positive right leg and right leg movements are painful. Laboratory Data: Her lumbar spine x-ray shows evidence of degenerative changes , no fracture. This was done yesterday. From 02/21/2019, CAT scan of the pelvis and hip and pelvis x-ray negative for fracture, changes of osteoarthritis of hip noted. Today we did MRI of right hip, which was negative for fracture and MRI of lumbar spine shows evidence of herniated disk and changes of arthritis. White count 6.7, hemoglobin 14, platelets 323, sodium 140, potassium 4.1, chloride 109, bicarb 24, glucose 135, BUN 16, creatinine 0.65. Impression: 1. Lumbar radiculopathy. 2. Osteoarthritis, multiple sites. 3. Hypertension. 4. Hyperlipidemia. Plan: Admit patient to hospital for further evaluation and management of this problem. The patient is appropriate for inpatient and is expected to spend 2 midnights in hospital. There is no evidence of hip fracture. We will consult orthopedic surgeon for his evaluation and see if he has any other recommendation. Physical Therapy to be consulted. Pain medications will be given per order. DVT prophylaxis will be given per order using Lovenox. Home medications will be continued. We will start her on IV steroid, Solu-Medrol per order, and I will see her tomorrow for followup. HARMAN/MODL Voice ID: [id number] MTDD
[2019-02-25] MEDS: FENTANYL CITR 100 MCG/2 ML IV SCH ×2 (06:17→12:51)
[2019-02-25] MEDS: PANTOPRAZOLE 40MG TABLET PO SCH (06:18)
[2019-02-25] MEDS: AMLODIPINE 5 MG TAB PO SCH (08:37)
[2019-02-25] MEDS: ENOXAPARIN 40 MG/0.4 ML SQ SCH (08:37)
[2019-02-25] MEDS: FOLIC ACID 1 MG TABLET PO SCH (08:37)
[2019-02-25] MEDS: IRBESARTAN 150 MG TAB PO SCH (08:37)
[2019-02-25] MEDS: ASPIRIN EC 81 MG TAB PO SCH (08:37)
[2019-02-25] MEDS: hydroCHLOROthiazide 12.5 MG CAP PO SCH (08:37)
--- NOTE | 2019-02-25 09:11 | RAD REPORT ---
EXAM DESCRIPTION: [facility] Single View02/25/2019 8:27 am CLINICAL HISTORY: Shortness of breath COMPARISON: May 2018 FINDINGS: The lungs appear clear of acute infiltrate. The heart is normal size IMPRESSION: No acute abnormalities displayed
--- NOTE | 2019-02-25 12:03 | EKG ---
Test Date: 2019-02-25 Test Time: 07:58:24 Machine Operator: ANDREW MEASUREMENT RESULTS: Intervals: Rate: 69 IA: 162 QRSD: 110 QT: 420 QTc: 450 [place]: P: 69 IA: 162 QRS: -37 T: 59 INTERPRETIVE STATEMENTS: Normal sinus rhythm Left axis deviation Incomplete left bundle branch block Left ventricular hypertrophy with repolarization abnormality Abnormal ECG Compared to ECG 12/10/2002 12:44:00 Left-axis deviation now present Left bundle-branch block now present Left ventricular hypertrophy now present Early repolarization now present Sinus bradycardia no longer present Myocardial infarct finding no longer present Electronically Signed On 02-25-19 12:02:18 CDT by Horace Fofana
--- NOTE | 2019-02-26 00:09 | DS ---
Date of Discharge: 02/25/2019 Disposition: Discharged to go home. Physical Examination: HEENT: Unremarkable. Lungs: Clear to auscultation. Heart: Sounds normal. Abdomen: Soft. Bowel sounds normal. No guarding, rigidity, tenderness, distention. Extremities: No leg edema. Discharge Diagnoses: 1.Lumbar radiculopathy. 2.Osteoarthritis, multiple sites. 3.Hypertension. 4.Hyperlipidemia. Discharge Medications And Instructions: 1.Continue all prior home medications except discontinue meloxicam. 2.Take prednisone 10 mg, the patient to take 2 tablets by mouth 2 times a day for 2 days, then 2 tab lets by mouth daily for 4 days, then 1 tablet by mouth daily for 4 days, then 1/2 tablet by mouth brenda ly for 4 days, then stop, take it with food. 3.Follow up in my office next week. 4.Follow up with neurosurgeon of your choice with copy of MRI film, and report was given to the maggi ent by me this morning and nurse was advised to bring MRI CD and give it to the patient prior to disc harge. 5.The patient's family to contact my office if they need any help to schedule appointment with the n robinrgeon and family is going to think about choice of the neurosurgeon and I did give them a coupl e of names. Hospital Course: A 78-year-old female patient, who was admitted to the hospital with lower back pain , right lateral hip pain, and right lateral leg pain. Please see dictated H and P for more informati on. After the patient was evaluated in the ER, she was admitted to the hospital. Two days prior to this admission, she came to ER with concern about possibility of hip fracture. Her hip x-ray and CAT scan of the pelvis were negative for any fracture, so she was discharged to go home from emergency r oom with meloxicam, tramadol, and she did not improve. She was in extreme pain and pain medication w as not controlling her pain at all. She had significant difficulty with changing position or ambulat ion stewart and she was at high risk from fall and injury. After the patient's daughter contacted me, s he was advised to bring her back to the emergency room. After she was evaluated in the ER, she was a dmitted to the hospital. Yesterday, we did obtain MRI of the right hip, which was negative for any f racture and we also did MRI of the lumbar spine and it showed changes of degenerative joint disease o f lumbar spine with osteophytes and presence of bulging disk and large herniated disk at L5-S1. This explains the patient's symptoms right now and we started her on IV steroid yesterday. This morning, she reported that her pain was somewhat better. Physical Therapy was consulted yesterday to assist the patient with ambulation. I advised the patient today that she should start ambulating and she sh ould use walker all the time. She has a walker at home and she was advised to use it all the time. She was also advised to ambulate at home using walker as much as she can as she tolerates. I recomme nded for her to visit a neurosurgeon and this morning when I saw her, her 1 daughter was present in r oom. Mother and daughter were on the phone and I gave name of 2 neurosurgeons. Family is going to t hink about which particular neurosurgeon they would like to use. If they need any assistance to sche dule appointment, they will contact my office. Copy of report of MRI of spine was given to the claire ter this morning and CD will be given to her by nursing staff to take it home, so she can take all th ose information to neurosurgeon's office. When I see her next week, we will consider outpatient phys ical therapy depending on neurosurgeon's plan. If the plan is to do surgery, then we will probably s tart therapy after the surgery is done. I have ordered chest x-ray and PT/INR to be done today prior to discharge, so we can follow up on those results and we can provide surgical clearance to her afte r reviewing those results. The patient is at acceptable risk from any planned surgery. I did advise the patient's family member that they need to provide 24-hour care to her and if her condition gets better, then the patient will need less and less assistance from family. HARMAN/MODL Voice ID: [id number] Report ID: [id number]
== END 2019-02-25 15:23 | disposition home or self-care (01) | DRG 552 ==
LOC: ER 15:40 → ERHOLD 18:49 → 2ND 20:22
PROVIDERS: ADMIT Internal Medicine; ATTEND Internal Medicine
DX: M51.17 Intervertebral disc disorders with radiculopathy, lumbosacral region (principal); M19.90 Unspecified osteoarthritis, unspecified site; I10 Essential (primary) hypertension; E78.5 Hyperlipidemia, unspecified
CPT/HCPCS: 36415; 71045; 72100; 72148; 72170; 72192; 80053; 83735; 85025; 85610; 93005; 96372; 97116; 97163; 99284; 99285; J1650; J2920; J3010